=== PATIENT | male | born 1980 | race Caucasian/White ===

== ENCOUNTER 2022-07-23 22:46 | Emergency (ER) | payer OTHER, SELFPAY ==
[2022-07-23 22:59] VITALS: BP 184/89; PULSE 79; RESP 20; TEMP 36.7; O2SAT 99; BMI 27.5
--- NOTE | 2022-07-23 23:11 | ED.NURSE ---
Nose clamp and ice applied to nose, per MD verbal request.
--- NOTE | 2022-07-23 23:28 | ED.EPISTAXIS ---
History of Present Illness General Chief Complaint: Epistaxis/Nosebleed Stated Complaint: bloody nose Time Seen by Provider: 07/23/22 23:02 History of Present Illness HPI Narrative: Pt is a healthy 42 year old gentleman who has had some mild nosebleeds in the past who presents with acute epistaxis from the left nostril that occured tonight after blowing his nose. Pt appears to be up to date on his Tdap and has no chronic medical issues that he is aware of. Pt takes no aspirin or blood thinners. Pt states bleeding began 90 minutes ago and has been brisk. No chest pain sob or cough. Related Data Home Medications Medication Instructions Recorded Confirmed No Known Home Medications 07/23/22 07/23/22 Allergies Allergy/AdvReac Type Severity Reaction Status Date / Time No Known Drug Allergies Allergy Verified 07/23/22 23:02 Review of Systems Status of ROS: Reports: 6 or more systems reviewed and unremarkable except as noted in History and below PFSH [facility] Medical History Elevated LFTs Hypertension Ebony-rectal abscess Social History Smoking Status: Never smoker Do you use any of these nicotine containing products: None Second hand tobacco smoke exposure: No How often do you have a drink containing alcohol: 4 or more times a week AUDIT-C Alcohol total score: 4 Non-prescribed substance use: denies use Exam Narrative: Exam Narrative: EXAM GENERAL: Patient appears comfortable and well. EYES: No scleral icterus. ENT: Bright red blood coming from left nostril moderate. THYROID: no thyroid nodules or thyromegaly. LYMPH: No supraclavicular or cervical lymphadenopathy. SKIN: Visible skin seen during exam normal or with benign process only. EXT: No dependent lower extremity pedal edema. HEART: Regular rate and rhythm with no murmurs, rubs, or gallops. LUNGS: Clear to auscultation bilaterally with no crackles or wheezes. ABD: Soft, non tender, non distended. PSYCH: Good eye contact, speech is not pressured. Const: Vital Signs, click to edit/add: Vital Signs - 24 hr 07/23/22 22:59 Temperature 98.0 F Pulse Rate [Right Pulse Oximeter] 79 Respiratory Rate 20 Blood Pressure [Ri ght Upper Arm] 184/89 H Pulse Oximetry 99 Oxygen Delivery Me thod Room Air Course Course Hospital Course: Nose clamp placed and ice placed on the forehead/nasal bridge. Bleeding stops in short order. Vital Signs Vital signs: Initial Vital Signs Temperature 98.0 F 07/23/22 22:59 Temperature Source Temporal Artery Scan 07/23/22 22:59 Pulse Rate 79 07/23/22 22:59 Respiratory Rate 20 07/23/22 22:59 Blood Pressure 184/89 H 07/23/22 22:59 Blood Pressure Mean 120 07/23/22 22:59 Blood Pressure Position Sitting 07/23/22 22:59 Pulse Oximetry 99 07/23/22 22:59 Oxygen Delivery Method 07/23/22 22:59 Vital Signs Temperature 98.0 F 07/23/22 22:59 Pulse Rate 79 07/23/22 22:59 Respiratory Rate 20 07/23/22 22:59 Blood Pressure 184/89 H 07/23/22 22:59 Pulse Oximetry 99 07/23/22 22:59 Oxygen Delivery Method 07/23/22 22:59 Temperature 98.0 F 07/23/22 22:59 Pulse Rate 79 07/23/22 22:59 Respiratory Rate 20 07/23/22 22:59 Blood Pressure 184/89 H 07/23/22 22:59 Pulse Oximetry 99 07/23/22 22:59 Oxygen Delivery Method 07/23/22 22:59 MDM - Epistaxis Medical Records Medical records narrative: Pt is a 42 year on no antiplatelet or anticoagulant medications who presents with left sided epistaxis. Bleeding stops immediately with ice and direct pressure. Pt encouraged to use nasal saline spray daily and follow up with PCP as needed. Discharge Plan Discharge Clinical Impression: Epistaxis Patient Disposition: Home, Self-Care Condition: Stable Instructions: Nosebleed (ED) Activity Level: No Restrictions Discharge Diet: Regular Prescriptions: No Action No Known Home Medications Follow Up/Referrals: Francisco Mandujano MD [Primary Care Provider] - Stand Alone Forms: [employer] Info Instructions
[2022-07-23 23:56] VITALS: BP 174/86; PULSE 79; RESP 20; TEMP 36.7; O2SAT 99
[2022-07-24 00:02] VITALS: BP 174/86; PULSE 79; RESP 20; TEMP 36.7
== END 2022-07-24 00:03 | disposition home or self-care (01) ==
PROVIDERS: Emergency Provider Internal Medicine; PCP Internal Medicine
DX: R04.0 Epistaxis (principal); I10 Essential (primary) hypertension
CPT/HCPCS: 99282; 99283

== ENCOUNTER 2022-08-02 09:53 | Outpatient (CLI) | payer OTHER, SELFPAY ==
[2022-08-02 12:49] LABS: Albumin* 4.8 g/dL (3.3-5.0)
[2022-08-02 12:50] LABS: Chloride* 105 mmol/L (96-114); Potassium* 4.3 mmol/L (3.6-5.1); Sodium* 143 mmol/L (135-149)
[2022-08-02 12:52] LABS: Bilirubin Total* 0.7 mg/dL (0.1-1.5); Carbon Dioxide* 28 mmol/L (20-32); Cholesterol* 226 mg/dL (90-199); Creatinine* 0.6 mg/dL (0.5-1.5); Estimated Glomerular Filt Rate 125 ml/min
[2022-08-02 12:53] LABS: Alanine Aminotransferase* 225 U/L (4-50); Alkaline Phosphatase* 164 U/L (40-150); Aspartate Amino Transferase* 379 U/L (12-35); Blood Urea Nitrogen* 3 mg/dL (5-24); Calcium* 8.9 mg/dL (8.4-10.6); Glucose* 101 mg/dL (60-115); HDL Cholesterol* 52 mg/dL (>=40); LDL Cholesterol Calculated 135 mg/dL (<100); Total Protein* 8.9 g/dL (6.0-8.3); Triglycerides* 194 mg/dL (40-149)
== END 2022-08-02 09:54 | disposition home or self-care (01) ==
PROVIDERS: PCP Internal Medicine; Visit Provider Family Medicine
DX: Z00.00 Encounter for general adult medical examination without abnormal findings (principal); R03.0 Elevated blood-pressure reading, without diagnosis of hypertension; Z13.6 Encounter for screening for cardiovascular disorders
CPT/HCPCS: 80053; 80061

== ENCOUNTER 2023-02-19 15:11 | Emergency (ER) | payer OTHER, SELFPAY ==
[2023-02-19 15:20] VITALS: BP 152/66; PULSE 97; RESP 18; TEMP 36.7; O2SAT 96; BMI 25.8
--- NOTE | 2023-02-19 15:37 | CRLHL7_ITS ---
For Patients: As a result of the Cures Act, medical imaging exams and procedure reports are released immediately into your electronic medical record. You may view this report before your referring provider. If you have questions, please contact your health care provider. Indication: Shortness of breath Comparison: None available. Technique: PA and lateral views of the chest Findings: There are increased interstitial markings likely representing mild pulmonary vascular congestion. There is no dense consolidation, effusion or pneumothorax. The cardiac silhouette is mildly prominent. The bony thorax is grossly intact. Impression: Increased interstitial markings likely representing mild pulmonary vascular congestion and/or bronchial thickening. No dense consolidation. Dictated by Cristopher Hart MD @ 02/19/2023 4:27:47 PM (Electronically Signed)
[2023-02-19] MEDS: ONDANSETRON 2 MG/ML inj 4 MG IVP (15:58)
[2023-02-19] MEDS: 0.9 % SODIUM CHLORIDE 1000 ml 1,000 ML IV (15:58)
--- NOTE | 2023-02-19 16:07 | ED.NURSE ---
Pt reports almost daily alcohol use of 5+ drinks at a time. He typically drinks 16 oz. beers when he drinks. Chart updated to reflect current alcohol use.
[2023-02-19 16:08] LABS: Lactate* 2.1 mmol/L (0.5-1.9)
[2023-02-19 16:19] LABS: Basophils Absolute Auto 0.02 K/uL (0.00-0.30); Basophils Percent Auto 0.4 % (0.0-3.0); Eosinophils Absolute Auto 0.01 K/uL (0.00-0.50); Eosinophils Percent Auto 0.2 % (0.0-7.0); Hemoglobin* 14.5 gm/dL (13.5-17.5); Immature Granulocytes Abs Auto 0.01 K/uL (0.00-0.30); Immature Granulocytes Pct Auto 0.2 %; Lymphocytes Absolute Auto 0.98 K/uL (0.90-2.90); Lymphocytes Percent Auto 20.8 % (20-44); Mean Corpuscular HGB Conc 35 gm/dL (32-36); Mean Corpuscular Hemoglobin 31 pg (26-34); Mean Corpuscular Volume 88 fL (80-100); Monocytes Percent Auto 6.2 % (0.0-11.0); Neutrophils Percent Auto 72.2 % (42.0-72.0); Platelet Count* 97 K/uL (140-440); RDW Coefficient of Variation % 14.2 % (11.5-15.5); Red Blood Count 4.75 m/uL (4.30-5.90); White Blood Count* 4.71 K/uL (4.50-11.00)
[2023-02-19 16:20] LABS: Slide Review Reflex No
[2023-02-19 16:32] LABS: Albumin* 4.9 g/dL (3.3-5.0); Chloride* 97 mmol/L (96-114); Sodium* 133 mmol/L (135-149)
[2023-02-19 16:33] LABS: Potassium* 3.7 mmol/L (3.6-5.1)
[2023-02-19 16:35] LABS: Creatinine* 0.5 mg/dL (0.5-1.5); Est. Creatinine Clearance* 177.22; Estimated Glomerular Filt Rate 132 ml/min
[2023-02-19 16:36] LABS: Alanine Aminotransferase* 56 U/L (4-50); Alkaline Phosphatase* 130 U/L (40-150); Aspartate Amino Transferase* 129 U/L (12-35); Bilirubin Direct* 0.4 mg/dL (0.0-0.5); Bilirubin Total* 1.5 mg/dL (0.1-1.5); Calcium* 9.1 mg/dL (8.4-10.6); Carbon Dioxide* 24 mmol/L (20-32); Glucose* 114 mg/dL (60-115); Lipase* 60 U/L (23-300); Total Protein* 9.8 g/dL (6.0-8.3)
[2023-02-19 16:37] LABS: Ethanol* 0.01 % (0.01-0.03)
[2023-02-19 16:39] LABS: C Reactive Protein* 0.5 mg/dL (0.5-1.0)
[2023-02-19 16:41] LABS: Blood Urea Nitrogen* < 2 mg/dL (5-24)
[2023-02-19 18:02] LABS: Appearance Urine Clear (Clear); Bilirubin Urine Negative (Negative); Blood Urine Negative (Negative); Color Urine Yellow (Yellow); Glucose Urine Negative (Negative); Ketones Urine Negative (Negative); Leukocyte Esterase Urine Negative (Negative); Nitrite Urine Negative (Negative); Protein Urine Negative (Negative); Urobilinogen Urine 0.2 (0.2-1.0); pH Urine 7.5 (5.0-8.5)
[2023-02-19 18:24] LABS: RBC Urine 0-2 (0-2); WBC Urine 0-2 (0-5)
--- NOTE | 2023-02-19 19:01 | ED_ITS ---
HPI - General Adult General Date Seen: 02/19/23 Chief complaint: Nausea/Vomiting Stated complaint: havent been able to eat last 3 days Time Seen by Provider: 02/19/23 15:23 Source: patient Mode of arrival: ambulatory Limitations: no limitations History of Present Illness HPI narrative: Patient is a 42-year-old male who presents for evaluation of vomiting and diarrhea. He says he had diarrhea Saturday and Saturday, has had vomiting for the past few days. The diarrhea has largely resolved although at the time he did note a little blood in his stools. No black stools. He has not had any abdominal pain at all. He does note that he feels a little short of breath, he thinks related to his nausea. He tells me that he drinks daily, acknowledges that he is drinking more than he should, and says that he has talked to his about cessation of alcohol. He stopped drinking a couple of days ago secondary to vomiting. he denies other symptoms of withdrawal. He has not had fevers or chills. Denies urinary symptoms. No ill contacts. Related Data Home Medications Medication Instructions Recorded Confirmed No Known Home Medications 07/23/22 11/07/22 Allergies Allergy/AdvReac Type Severity Reaction Status Date / Time No Known Drug Allergies Allergy Verified 11/07/22 16:36 Review of Systems Status of ROS: Reports: 10 or more systems reviewed and unremarkable except as noted in History and below [facility] Medical History Left wrist fracture ?S62.102A - Fracture of unspecified carpal bone, left wrist, initial encounter for closed fracture (ICD-10) Elevated LFTs ?R79.89 - Other specified abnormal findings of blood chemistry (ICD-10) Ebony-rectal abscess ?K61.1 - Rectal abscess (ICD-10) Surgical History Hx of appendectomy ?Z90.49 - Acquired absence of other specified parts of digestive tract (ICD- 10) Family History Mother High blood pressure Diabetes Father Diabetes Family/Other Diabetes 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 In general, an alert, well-appearing patient. Head: Normocephalic, atraumatic. Eyes: Pupils are equal reactive. Extraocular movements are full. Conjunctivae are normal. ENT: Mucous membranes are moist. Throat is normal. Neck: Supple without lymphadenopathy. Heart: Regular rate and rhythm. No murmur or rub. Lungs: Clear bilaterally. No increased work of breathing, crackles or wheezes. Abdomen: Soft and nontender. No organomegaly. Extremities: Well perfused. No edema. No calf tenderness. Pulses intact. Neurologic: Patient is alert and oriented to person and place. Speech is fluent. Face is symmetric. Moves all extremities equally. Affect: Normal. Skin: Warm and dry. Well perfused. Const: Vital Signs, click to edit/add: Vital Signs - 24 hr 02/19/23 15:20 Temperature 98.1 F Pulse Rate [Right Pulse Oximeter] 97 Respiratory Rate 18 Blood Pressure [Ri ght Upper Arm] 152/66 H Pulse Oximetry 96 Oxygen Delivery Me thod Room Air Documenting provider has reviewed patient's vital signs: yes Course Course Hospital Course: We placed an IV here, he had a L of normal saline as well as Zofran. Has not had further vomiting while here. Labs including a CBC, metabolic panel, LFTs, lactate and CRP were obtained. Notably his LFT show mild elevations of his transaminases which he has been told he says in the past. His AST is 129, ALT 56. This may be related to alcoholic hepatitis. His lactate was mildly elevated at 2.1. Urinalysis was negative, no red cells, no white cells, no ketones. Blood alcohol was negative as well. Lipase was normal at 60. CBC showed a white count of 4.7 and hemoglobin of 14.5, platelets were low at 97,000 seven thousand, again likely related to alcohol. Metabolic panel was notable for a BUN add that was low at less than 2. Sodium was 133, potassium 3.7. Blood sugar was 114. He feels improved after fluids. He was able to have some water crackers. Symptoms may be viral, I am less suspicious of withdrawal since the symptoms started before he stop drinking. Transaminases are mildly abnormal but I doubt this represents acute symptomatic hepatitis. no evidence of pancreatitis base d on normal lipase, absence of abdominal pain or tenderness. I agree with his decision to stop drinking. Recommend use of Zofran, hydration over the next couple of days. If not improving he should be seen again. Zofran if needed for nausea at home. Recommend clear liquids today, advance as able. Return at any time for abdominal pain, fevers, bloody or black stools, vomiting blood. Vital Signs Vital signs: Initial Vital Signs Temperature 98.1 F 02/19/23 15:20 Temperature Source Temporal Artery Scan 02/19/23 15:20 Pulse Rate 97 02/19/23 15:20 Respiratory Rate 18 02/19/23 15:20 Blood Pressure 152/66 H 02/19/23 15:20 Blood Pressure Mean 94 02/19/23 15:20 Blood Pressure Position Sitting 02/19/23 15:20 Pulse Oximetry 96 02/19/23 15:20 Oxygen Delivery Method Room Air 02/19/23 15:20 Vital Signs Temperature 98.1 F 02/19/23 15:20 Pulse Rate 97 02/19/23 15:20 Respiratory Rate 18 02/19/23 15:20 Blood Pressure 152/66 H 02/19/23 15:20 Pulse Oximetry 96 02/19/23 15:20 Oxygen Delivery Method Room Air 02/19/23 15:20 Temperature 98.1 F 02/19/23 15:20 Pulse Rate 97 02/19/23 15:20 Respiratory Rate 18 02/19/23 15:20 Blood Pressure 152/66 H 02/19/23 15:20 Pulse Oximetry 96 02/19/23 15:20 Oxygen Delivery Method Room Air 02/19/23 15:20 Medical Decision Making Lab Data Labs: Lab Results 02/19/23 02/19/23 Range/Units 15:56 17:37 WBC 4.71 (4.50-11.00) K/uL RBC 4.75 (4.30-5.90) m/uL Hgb 14.5 (13.5-17.5) gm/dL Hct 42.0 (37.0-53.0) % MCV 88 (80-100) fL MCH 31 (26-34) pg MCHC 35 (32-36) gm/dL RDW Coeff of Karen 14.2 (11.5-15.5) % Plt Count 97 L (140-440) K/uL Neut % (Auto) 72.2 H (42.0-72.0) % Lymph % (Auto) 20.8 (20-44) % Catron % (Auto) 6.2 (0.0-11.0) % Eos % (Auto) 0.2 (0.0-7.0) % Baso % (Auto) 0.4 (0.0-3.0) % Neut # (Auto) 3.40 (1.7-7.0) K/uL Lymph # (Auto) 0.98 (0.90-2.90) K/uL Catron # (Auto) 0.30 (0.00-0.90) K/UL Eos # (Auto) 0.01 (0.00-0.50) K/uL Baso # (Auto) 0.02 (0.00-0.30) K/uL Sodium 133 L (135-149) mmol/L Potassium 3.7 (3.6-5.1) mmol/L Chloride 97 (96-114) mmol/L Carbon Dioxide 24 (20-32) mmol/L BUN < 2 L (5-24) mg/dL Creatinine 0.5 (0.5-1.5) mg/dL Estimated Creat Clear 177.22 Estimated GFR 132 ml/min Glucose 114 (60-115) mg/dL Lactate 2.1 H (0.5-1.9) mmol/L Calcium 9.1 (8.4-10.6) mg/dL Total Bilirubin 1.5 (0.1-1.5) mg/dL Direct Bilirubin 0.4 (0.0-0.5) mg/dL AST 129 H (12-35) U/L ALT 56 H (4-50) U/L Alkaline Phosphatase 130 (40-150) U/L C-Reactive Protein 0.5 (0.5-1.0) mg/dL Total Protein 9.8 H (6.0-8.3) g/dL Albumin 4.9 (3.3-5.0) g/dL Lipase 60 (23-300) U/L Urine Color Yellow (Yellow) Urine Appearance Clear (Clear) Urine pH 7.5 (5.0-8.5) Ur Specific [place] 1.010 (1.000-1.030) Urine Protein Negative (Negative) Urine Glucose (UA) Negative (Negative) Urine Ketones Negative (Negative) Urine Blood Negative (Negative) Urine Nitrite Negative (Negative) Urine Bilirubin Negative (Negative) Urine Urobilinogen 0.2 (0.2-1.0) Ur Leukocyte Esterase Negative (Negative) Urine RBC 0-2 (0-2) Urine WBC 0-2 (0-5) Ur Squamous Epith Cells None (None-Few) Urine Bacteria None (None) Ethyl Alcohol 0.01 (0.01-0.03) % Discharge Plan Discharge Clinical Impression: Alcohol abuse, Vomiting Patient Disposition: Home, Self-Care Condition: Improved Instructions: Acute Nausea and Vomiting (DC) Additional Instructions: clear liquids today, advance diet as able. Agree with your decision to quit drinking Alcohol. Consider AA if you need additional resources. If you have persistent uncontrolled vomiting, develops significant abdominal pain, or vomiting blood or having matthew bloody stools, return to the emergency department. Otherwise, clinic follow-up next week for recheck. Zofran if needed for nausea at home. Prescriptions: No Action No Known Home Medications Follow Up/Referrals: Francisco Mandujano MD [Primary Care Provider] - Stand Alone Forms: [employer] Info Instructions
== END 2023-02-19 18:20 | disposition home or self-care (01) ==
PROVIDERS: Emergency Provider Emergency Medicine; PCP Internal Medicine
DX: F10.10 Alcohol abuse, uncomplicated (principal); R11.10 Vomiting, unspecified
CPT/HCPCS: 36415; 71046; 80048; 80076; 81001; 82077; 83605; 83690; 85025; 86140; 93005; 96361; 96374; 99284; 99285; J2405; J7030

== ENCOUNTER 2024-07-02 14:24 | Outpatient (CLI) | payer OTHER, SELFPAY | END 2024-07-02 14:25 | disposition home or self-care (01) | PROVIDERS: PCP Internal Medicine; Visit Provider Internal Medicine | DX: R63.4 Abnormal weight loss (principal); R82.90 Unspecified abnormal findings in urine | CPT/HCPCS: 80053; 84443; 85610; 85730; 87086 ==

== ENCOUNTER 2024-08-30 09:47 | Emergency (ER) | payer OTHER, SELFPAY ==
[2024-08-30] VITALS (22 sets, daily range): BP systolic 146–167; BP diastolic 87–96; PULSE 95–117; RESP 14–22; TEMP 37.5; O2SAT 92–97; BMI 28.3
--- OUTSIDE RECORDS SUMMARY | 2024-08-30 09:49 | XMS_ITS | Clinical Summary ---
Author Organization [employer] [facility] Address [place], [place] [address] Care Team Providers Care Beam Department Supervisor Name Role Phone Pcp, No Primary Care Provider Unavailabl e Allergies No known active allergies Medications No known medications Active Problems Problem Noted Date Diagnosed Date Anxiety state, unspecified 12/09/2009 Immunizations Name Administration Dates Next Due Influenza, IIV4 07/16/2017 Tdap 02/01/2012 Family History Medical History Relation Name Comments Diabetes Father 2017 age 7 3, heart attack Diabetes Maternal Aunt Diabetes Maternal Uncle 3 uncles Diabetes Mother age 65, he art attack Relation Name Status Comments Father Maternal Aunt Maternal Uncle Mother Social History Tobacco Use Types Packs/Day Years Used Date Smoking Tobacco: Never Smokeless Tobacco: Never Tobacco Cessation:Counseling Given: Yes Alcohol Use Standard Drinks/Week Comments Yes 5 (1 standard drink = 0.6 oz pure alcohol) 3 beers per day, more on weekends. 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 Not on file Not on file Not on file Obstetrics History Last Filed Vital Signs Vital Sign Reading Time Taken Comments Blood Pressure 128/81 07/16/2017 9:22 AM CONTENT WRITER Pulse 72 07/16/2017 9:22 AM CONTENT WRITER Temperature 36.8 C (98.2 F) 07/16/2017 9:22 AM CONTENT WRITER Respiratory Rate - - Oxygen Saturation 94% 07/16/2017 9:22 AM CONTENT WRITER Inhaled Oxygen Concentration - - Weight 81.8 kg (180 lb 6.4 oz) 07/16/2017 9:22 A M CONTENT WRITER Height 161.3 cm (5' 3.5) 07/16/2017 9:22 AM CONTENT WRITER Body Mass Index 31.46 07/16/2017 9:22 AM CONTENT WRITER Plan of Treatment Health Maintenance Due Date Last Done Comments HIV for age 15-65 1997 Hepatitis C screening for ag e 18-79 2000 BMI (ht and wt on same day) for age 18+ 07/16/2018 07/16/2017 Depression screening for age 12+ 07/16/2018 07/16/2017 Tetanus booster 01/31/2022 02/01/2012, 02/01/2012 Lipids for age 35-44 07/16/2022 07/16/2017, 02/01/2012 COVID-19 vaccine series ( season) 2024 Influenza for age 9-49 04/26/2024 07/16/2017 Tdap Completed 02/01/2012 Pneumococcal series for age 6-49 Aged Out No longer eligible b ased on patient's age to complete this topic Procedures Procedure Name Priority Date/Time Associated Diagnosis Comments LIPID PANEL W REFLEX MEASURED LDL Routine 07/16/2017 10:47 AM CONTENT WRITER Routine physical examination from Last 3 Months or Most Recently Relevant to Health Maintenance Results * (ABNORMAL) LIPID PANEL W REFLEX MEASURED LDL (07/16/2017 10:47 AM CONTENT WRITER) CHOLESTEROL,TOTAL 228(H) 100 - 199 mg/dL 07/16/2017 5:58 PM CONTENT WRITER [facility] TRIGLYCERIDES 142 <150 mg/dL 07/16/2017 5:58 PM CONTENT WRITER [facility] HDL CHOLESTEROL 53 >40 mg/dL 7 5:58 PM CONTENT WRITER [facility] NON-HDL CHOLESTEROL 175(H) <145 mg/dl 07/16/2017 5:58 PM CONTENT WRITER [facility] CHOL/HDL RATIO 4.30 <4.50 07/16/2017 5:58 PM CONTENT WRITER [facility] LDL CHOLESTEROL 147(H) <=130 mg/dL 07/16/2017 5:58 PM CONTENT WRITER [facility] PROVIDER ORDERED STATUS RANDOM 07/16/2017 5:58 PM CONTENT WRITER [facility] Blood BLOOD SPECIMEN / Unknown Venipuncture / Unknown 07/16/2017 10:47 AM CONTENT WRITER 07/16/2017 10:47 AM CONTENT WRITER us Emory Shafer MD CHEMISTRY Final Re sult [facility] [address] [place] [address], from Last 3 Months or Most Recently Relevant to Health Maintenance Insurance [employer] [id number] Care Teams Beam Department Supervisor Relationship Specialty Start Date End Date Pcp, No . PCP - General 01/16/21
--- NOTE | 2024-08-30 11:15 | CRLHL7_ITS ---
For Patients: As a result of the Century Cures Act, medical imaging exams and procedure reports are released immediately into your electronic medical record. You may view this report before your referring provider. If you have questions, please contact your health care provider. INDICATION: Chest pain. TECHNIQUE: Chest 2 views. COMPARISON: February 19, 2023. FINDINGS: Cardiovascular and mediastinum: Heart size and vasculature are normal in caliber and appearance. Lungs and pleural spaces: Low lung volumes with persistent increased interstitial markings. No sign of infiltrate or mass. No sign of pleural effusion. No pneumothorax. Bones and soft tissues: No significant findings. IMPRESSION: Low lung volumes with persistent increased interstitial markings. No change. Dictated by Jaime Mcintyre MD @ 08/30/2024 11:54:43 AM (Electronically Signed)
--- NOTE | 2024-08-30 11:19 | ED_ITS ---
HPI - Chest Pain General Date Seen: 08/30/24 Chief Complaint: Chest Pain Stated Complaint: Bleeding gums Time Seen by Provider: 08/30/24 10:58 Source: patient Mode of arrival: ambulatory Limitations: no limitations History of Present Illness HPI narrative: Patient is a 44-year-old male presenting to the emergency department for chest pain, bleeding gums, epistaxis. Patient states for the past few days he has been having bleeding gums and intermittent epistaxis. States he has had this before a couple months ago when he saw his primary care provider. Was supposed to follow-up again after that but never did. At that time he platelets of 30. He does drink 7-8 beers every night for the past several years. States his last drink the was 5 days ago. States she has started to feel tremulous yesterday when he began having viral symptoms. States that better rhinorrhea and a mild cough. Has not had any fevers or chills. Also woke up this morning with some chest pain and mild shortness of breath. States he has had this chest pain several times before and seems to be random in nature. Usually goes away after couple days. Does not notice of anything makes it better or worse. Has no history of blood clots. Does state he has been having some nausea and when he turned very nauseated he feels slightly lightheaded. Does not feel lightheaded or dizzy right now. Denies headache, vision changes, weakness, numbness, abdominal pain, diarrhea, constipation. No other concerns noted. Related Data Home Medications ?Medication ?Instructions ?Recorded ?Confirmed No Known Home Medications 08/30/24 08/30/24 Allergies Allergy/AdvReac Type Severity Reaction Status Date / Time No Known Drug Allergies Allergy Verified 08/30/24 12:39 Review of Systems Status of ROS Reports: 10 or more systems reviewed and unremarkable except as noted in History and below [facility] Medical History Thrombocytopenia ?D69.6 - Thrombocytopenia, unspecified (ICD-10) Weight loss ?R63.4 - Abnormal weight loss (ICD-10) Left wrist fracture ?S62.102A - Fracture of unspecified carpal bone, left wrist, initial encounter for closed fracture (ICD-10) Elevated LFTs ?R79.89 - Other specified abnormal findings of blood chemistry (ICD-10) Ebony-rectal abscess ?K61.1 - Rectal abscess (ICD-10) Surgical History Hx of appendectomy ?Z90.49 - Acquired absence of other specified parts of digestive tract (ICD- 10) Family History Mother High blood pressure Diabetes Father Diabetes Family/Other Diabetes 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 Moist mucous membranes. Coagulated blood seen by tooth 6 and 7 with gingivitis noted underneath. Bleeding did not return when blood was wiped away. No signs of active bleeding from nose. Neck: Symmetric, trachea midline, No thyromegaly. CVS: RRR, No murmurs or gallops. Peripheral pulses 2+ and equal in all extremities RESP: Unlabored respiratory effort. Clear to auscultation bilaterally. GI: Nontender/Nondistended, No rebound or guarding. MSK:Extremities w/o deformity, Normal Active ROM Skin: Warm, Dry. No rashes or lesions. Neuro: Normal Muscle tone, No focal neurological deficits. Psych: Awake, Alert, & Oriented x3. Appropriate mood and affect. Const Vital Signs, click to edit/add: Vital Signs - 24 hr 08/30/24 10:56 08/30/24 11:59 08/30/24 12:00 Temperature 99.5 F Pulse Rate 99 102 H Pulse Rate [Pulse Oximeter] 107 H Respiratory Rate 22 Blood Pressure 146/87 H Blood Pressure [Right Upper Arm] 167/89 H Pulse Oximetry 95 95 95 Oxygen Delivery Method Room Air 08/30/24 12:15 08/30/24 12:30 08/30/24 12:48 Temperature Pulse Rate 100 95 111 H Pulse Rate [Pulse Oximeter] Respiratory Rate Blood Pressure Blood Pressure [Right Upper Arm] Pulse Oximetry 96 94 97 Oxygen Delivery Method 08/30/24 13:00 08/30/24 13:15 08/30/24 13:30 Temperature Pulse Rate 104 H 108 H 100 Pulse Rate [Pulse Oximeter] Respiratory Rate Blood Pressure Blood Pressure [Right Upper Arm] Pulse Oximetry 94 94 92 Oxygen Delivery Method 08/30/24 13:45 08/30/24 14:00 08/30/24 14:15 Temperature Pulse Rate 109 H 108 H 110 H Pulse Rate [Pulse Oximeter] Respiratory Rate Blood Pressure Blood Pressure [Right Upper Arm] Pulse Oximetry 95 95 96 Oxygen Delivery Method 08/30/24 14:30 08/30/24 14:45 08/30/24 15:06 Temperature Pulse Rate 104 H 104 H 117 H Pulse Rate [Pulse Oximeter] Respiratory Rate Blood Pressure Blood Pressure [Right Upper Arm] Pulse Oximetry 95 96 94 Oxygen Delivery Method 08/30/24 15:15 08/30/24 15:24 08/30/24 15:30 Temperature Pulse Rate 103 H 106 H 106 H Pulse Rate [Pulse Oximeter] Respiratory Rate 14 Blood Pressure 147/96 H Blood Pressure [Right Upper Arm] Pulse Oximetry 96 94 95 Oxygen Delivery Method 08/30/24 15:45 08/30/24 16:00 08/30/24 16:15 Temperature Pulse Rate 113 H 98 98 Pulse Rate [Pulse Oximeter] Respiratory Rate Blood Pressure Blood Pressure [Right Upper Arm] Pulse Oximetry 95 94 92 Oxygen Delivery Method 08/30/24 16:30 Temperature Pulse Rate 98 Pulse Rate [Pulse Oximeter] Respiratory Rate 16 Blood Pressure Blood Pressure [Right Upper Arm] Pulse Oximetry 95 Oxygen Delivery Method Course Vital Signs Vital signs: Initial Vital Signs Temperature 99.5 F 08/30/24 10:56 Temperature Source Temporal Artery Scan 08/30/24 10:56 Pulse Rate 107 H 08/30/24 10:56 Respiratory Rate 22 08/30/24 10:56 Blood Pressure 167/89 H 08/30/24 10:56 Blood Pressure Mean 115 H 08/30/24 10:56 Blood Pressure Position Sitting 08/30/24 10:56 Pulse Oximetry 95 08/30/24 10:56 Oxygen Delivery Method Room Air 08/30/24 10:56 Vital Signs Temperature 99.5 F 08/30/24 10:56 Pulse Rate 107 H 08/30/24 10:56 Respiratory Rate 22 08/30/24 10:56 Blood Pressure 167/89 H 08/30/24 10:56 Pulse Oximetry 95 08/30/24 10:56 Oxygen Delivery Method Room Air 08/30/24 10:56 Temperature 99.5 F 08/30/24 10:56 Pulse Rate 98 08/30/24 16:30 Respiratory Rate 16 08/30/24 16:30 Blood Pressure 147/96 H 08/30/24 15:24 Pulse Oximetry 95 08/30/24 16:30 Oxygen Delivery Method Room Air 08/30/24 10:56 MDM - Chest Pain MDM Narrative Medical decision making narrative: Patient is a 44-year-old male presenting to the emergency department for bleeding gums, epistaxis, chest pain. He is also having flu-like symptoms. Will check a COVID/flu/RSV. The differential diagnosis of chest pain is broad and includes common etiologies such as musculoskeletal strain, GERD, pneumonia, etc. More serious etiologies considered include PE, coronary artery disease, pneumothorax, aortic dissection, aortic aneurysm. He does have a history of thrombocytopenia but I will order a D-dimer for possible signs of blood clot causing his chest pain and shortness of breath. Will also order chest x-ray to look for signs pneumonia or pneumothorax. EKG and troponin to look for signs of ACS or myocarditis. He is otherwise stable so aortic dissection and aortic aneurysm seen on likely although there would be concern about increased bleeding risk with his history of thrombocytopenia. Also ordered coags. He is tremulous at this time which would increase my concern for alcohol withdrawal but he is adamant he has not had a drink for over 5 days and this will be quite delayed response. He states symptoms started right after he started having flu-like symptoms. Lab work returns with a platelet count of 26. This is roughly the same as previously. Rest of his CBC shows no concerning findings. CMP shows elevated liver enzymes consistent with his previous levels other than his total bilirubin which is almost twice is high. Will order direct bilirubin. He does have an elevated D-dimer so CTA was ordered. His INR and PTT are slightly elevated. Fibrinogen ordered. There is concern for liver cirrhosis with his history so will order an ultrasound for better evaluation. EKG shows sinus tachycardia but no other concerning findings. Troponin within normal limits. Will repeat troponin after 2 hours. Viral swabs are negative. Repeat troponin within normal limits. The CTA does show a mediastinal mass. Does recommend GI consult and endoscopy. I did speak to his primary care provider he states he can get the patient scheduled with him this week and get an endoscopy performed. Along with getting him scheduled for any other imaging that is needed. Ultrasounds shows a cirrhotic liver with reverse flow of the portal vein and splenomegaly. He also has a distended gallbladder that does not appear to be cholecystitis. There is a mass in the pancreatic head and it is recommend he get a CT scan of his abdomen pelvis. There is concerned this could be pancreatic cancer. He does have elevated direct bilirubin but his other LFTs are doing well. He is otherwise feeling well at this time. I believe this CT scan can be done outpa tient. I informed of all his results. He is agreeable to this plan. Lab Data Labs: Lab Results 08/30/24 08/30/24 08/30/24 Range/Units 11:15 11:50 11:50 WBC 3.01 L (4.50-11.00) K/uL RBC 3.98 L (4.30-5.90) m/uL Hgb 13.0 L (13.5-17.5) gm/dL Hct 38.2 (37.0-53.0) % MCV 96 (80-100) fL MCH 33 (26-34) pg MCHC 34 (32-36) gm/dL RDW Coeff of Karen 14.9 (11.5-15.5) % Plt Count 26 L* (140-440) K/uL Neut % (Auto) 70.5 (42.0-72.0) % Lymph % (Auto) 18.6 L (20-44) % [place] % (Auto) 9.3 (0.0-11.0) % Eos % (Auto) 0.3 (0.0-7.0) % Baso % (Auto) 1.0 (0.0-3.0) % Neut # (Auto) 2.10 (1.7-7.0) K/uL Lymph # (Auto) 0.60 L (0.90-2.90) K/uL [place] # (Auto) 0.30 (0.00-0.90) K/UL Eos # (Auto) 0.00 (0.00-0.50) K/uL Baso # (Auto) 0.00 (0.00-0.30) K/uL Abs Immat Gran (auto) 0.00 (0.00-0.30) K/uL Imm/Tot Granulo (auto) 0.3 % Diff Slide Review Acceptable Review (Acceptable) INR 1.33 H (0.91-1.10) APTT 41 H (23-33) Seconds Fibrinogen 298 (200-450) mg/dL D-Dimer Quant (PE/DVT) 1.48 H Cancelled (0.00-0.50) ug/ml Sodium 134 L (135-149) mmol/L Potassium 3.8 (3.6-5.1) mmol/L Chloride 104 (96-114) mmol/L Carbon Dioxide 23 (20-32) mmol/L Anion Gap 7 (7-15) mEq/L BUN 3 L (5-24) mg/dL Creatinine 0.4 L (0.5-1.5) mg/dL Estimated Creat Clear 209.27 Estimated GFR 140 ml/min Glucose 122 H (60-115) mg/dL Lactate 1.3 (0.5-1.9) mmol/L Calcium 8.2 L (8.4-10.6) mg/dL Total Bilirubin 4.9 H (0.1-1.5) mg/dL Direct Bilirubin 2.9 H (0.0-0.5) mg/dL AST 227 H (12-35) U/L ALT 42 (4-50) U/L Alkaline Phosphatase 298 H (40-150) U/L Total Protein 9.5 H (6.0-8.3) g/dL Albumin 3.8 (3.3-5.0) g/dL SARS-CoV-2 (PCR) (Negative) Influenza Type A (PCR) (Negative) Influenza Type B (PCR) (Negative) RSV (PCR) (Negative) Lab Acknowledgement POC Troponin I 0.00 L (0.01-0.04) ng/ml 08/30/24 08/30/24 08/30/24 Range/Units 11:52 12:38 13:14 WBC (4.50-11.00) K/uL RBC (4.30-5.90) m/uL Hgb (13.5-17.5) gm/dL Hct (37.0-53.0) % MCV (80-100) fL MCH (26-34) pg MCHC (32-36) gm/dL RDW Coeff of Karen (11.5-15.5) % Plt Count (140-440) K/uL Neut % (Auto) (42.0-72.0) % Lymph % (Auto) (20-44) % [place] % (Auto) (0.0-11.0) % Eos % (Auto) (0.0-7.0) % Baso % (Auto) (0.0-3.0) % Neut # (Auto) (1.7-7.0) K/uL Lymph # (Auto) (0.90-2.90) K/uL [place] # (Auto) (0.00-0.90) K/UL Eos # (Auto) (0.00-0.50) K/uL Baso # (Auto) (0.00-0.30) K/uL Abs Immat Gran (auto) (0.00-0.30) K/uL Imm/Tot Granulo (auto) % Diff Slide Review (Acceptable) INR (0.91-1.10) APTT (23-33) Seconds Fibrinogen (200-450) mg/dL D-Dimer Quant (PE/DVT) (0.00-0.50) ug/ml Sodium (135-149) mmol/L Potassium (3.6-5.1) mmol/L Chloride (96-114) mmol/L Carbon Dioxide (20-32) mmol/L Anion Gap (7-15) mEq/L BUN (5-24) mg/dL Creatinine (0.5-1.5) mg/dL Estimated Creat Clear Estimated GFR ml/min Glucose (60-115) mg/dL Lactate (0.5-1.9) mmol/L Calcium (8.4-10.6) mg/dL Total Bilirubin (0.1-1.5) mg/dL Direct Bilirubin (0.0-0.5) mg/dL AST (12-35) U/L ALT (4-50) U/L Alkaline Phosphatase (40-150) U/L Total Protein (6.0-8.3) g/dL Albumin (3.3-5.0) g/dL SARS-CoV-2 (PCR) Negative SARS-CoV-2 (Negative) Influenza Type A (PCR) Negative PCR FLU A (Negative) Influenza Type B (PCR) Negative PCR FLU B (Negative) RSV (PCR) Negative PCR RSV (Negative) Lab Acknowledgement Test Added Test Added POC Troponin I (0.01-0.04) ng/ml 08/30/24 Range/Units 13:44 WBC (4.50-11.00) K/uL RBC (4.30-5.90) m/uL Hgb (13.5-17.5) gm/dL Hct (37.0-53.0) % MCV (80-100) fL MCH (26-34) pg MCHC (32-36) gm/dL RDW Coeff of Karen (11.5-15.5) % Plt Count (140-440) K/uL Neut % (Auto) (42.0-72.0) % Lymph % (Auto) (20-44) % [place] % (Auto) (0.0-11.0) % Eos % (Auto) (0.0-7.0) % Baso % (Auto) (0.0-3.0) % Neut # (Auto) (1.7-7.0) K/uL Lymph # (Auto) (0.90-2.90) K/uL [place] # (Auto) (0.00-0.90) K/UL Eos # (Auto) (0.00-0.50) K/uL Baso # (Auto) (0.00-0.30) K/uL Abs Immat Gran (auto) (0.00-0.30) K/uL Imm/Tot Granulo (auto) % Diff Slide Review (Acceptable) INR (0.91-1.10) APTT (23-33) Seconds Fibrinogen (200-450) mg/dL D-Dimer Quant (PE/DVT) (0.00-0.50) ug/ml Sodium (135-149) mmol/L Potassium (3.6-5.1) mmol/L Chloride (96-114) mmol/L Carbon Dioxide (20-32) mmol/L Anion Gap (7-15) mEq/L BUN (5-24) mg/dL Creatinine (0.5-1.5) mg/dL Estimated Creat Clear Estimated GFR ml/min Glucose (60-115) mg/dL Lactate (0.5-1.9) mmol/L Calcium (8.4-10.6) mg/dL Total Bilirubin (0.1-1.5) mg/dL Direct Bilirubin (0.0-0.5) mg/dL AST (12-35) U/L ALT (4-50) U/L Alkaline Phosphatase (40-150) U/L Total Protein (6.0-8.3) g/dL Albumin (3.3-5.0) g/dL SARS-CoV-2 (PCR) (Negative) Influenza Type A (PCR) (Negative) Influenza Type B (PCR) (Negative) RSV (PCR) (Negative) Lab Acknowledgement POC Troponin I 0.00 L (0.01-0.04) ng/ml Imaging Data Chest x-ray: Attestation: I have reviewed the pertinent imaging results. Radiologist's impression: Low lung volumes with persistent increased interstitial markings. No change. Dictated by Jaime Mcintyre MD @ 08/30/2024 11:54:43 AM Chest CTA: Attestation: I have reviewed the pertinent imaging results. Radiologist's impression: 1. No pulmonary embolism. No acute pulmonary process. 2. Abnormal posterior mediastinum with thickened dilated patulous esophagus which may be achalasia, versus potentially mass. Endoscopy and/or fluoroscopic contrast esophagram or upper GI recommended for better characterization. GI consult recommended. Please note that all CT scans at this facility use dose modulation, iterative reconstruction, and/or weight-based dosing when appropriate to reduce radiation dose to as low as reasonably achievable. Dictated by Gilmer Tang MD @ 08/30/2024 1:20:01 PM US - abdomen: Attestation: I have reviewed the pertinent imaging results. Radiologist's impression: 1. Cirrhotic morphology liver. Hepatofugal flow in the main portal vein. No focal mass. Splenomegaly 2. Rounded hypoechoic area measured by the technologist near the pancreatic head measuring 2.1 centimeters incompletely assessed by ultrasound could reflect adenopathy. Mass not excluded. CT abdomen pelvis would be recommended. 3. Sludge in the gallbladder nonspecific gallbladder wall thickening measuring 5 millimeters. Dictated by Beryl Mendoza MD @ 08/30/2024 4:22:54 PM ECG Data Attestation: I personally reviewed and interpreted this ECG as follows: Prior ECG tracings: available for review Interpretation: Sinus tachycardia with a rate of 102 beats per minute, right bundle branch block, normal intervals, normal axis, no ST or T-wave abnormalities. The right bundle-branch block is new but otherwise appears similar to previous EKG Discharge Plan Discharge Clinical Impression: Thrombocytopenia, Mediastinal abnormality, Mass of head of pancreas Cirrhosis Qualifiers: Hepatic cirrhosis type: alcoholic cirrhosis Ascites presence: without ascites Qualified Code(s): K70.30 - Alcoholic cirrhosis of liver without ascites Patient Disposition: Home, Self-Care Condition: Stable Instructions: Cirrhosis of the Liver (ED) Additional Instructions: You NEED to call your primary care provider, Dr. Mandujano, tomorrow morning. He is aware you are here and states you will be able to get in with his office this week. It is also important that you do not drink anymore alcohol as that is likely the cause of most of your issues. You have very low platelets that are at high risk of bleeding so be very careful as any hit your head can cause severe acute brain bleeds. Return to emergency department for new or worsening Prescriptions: No Action No Known Home Medications Follow Up/Referrals: Francisco Mandujano MD [Primary Care Provider] - Stand Alone Forms: [employer] Instructions
--- OUTSIDE RECORDS SUMMARY | 2024-08-30 11:43 | XMS_ITS | Clinical Summary ---
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 Not on file Not on file Not on file Obstetrics History Last Filed Vital Signs Vital Sign Reading Time Taken Comments Blood Pressure 128/81 07/16/2017 9:22 AM PLATFORM ATTENDANT Pulse 72 07/16/2017 9:22 AM PLATFORM ATTENDANT Temperature 36.8 C (98.2 F) 07/16/2017 9:22 AM PLATFORM ATTENDANT Respiratory Rate - - Oxygen Saturation 94% 07/16/2017 9:22 AM PLATFORM ATTENDANT Inhaled Oxygen Concentration - - Weight 81.8 kg (180 lb 6.4 oz) 07/16/2017 9:22 A M PLATFORM ATTENDANT Height 161.3 cm (5' 3.5) 07/16/2017 9:22 AM PLATFORM ATTENDANT Body Mass Index 31.46 07/16/2017 9:22 AM PLATFORM ATTENDANT Plan of Treatment Health Maintenance Due Date [...] REFLEX MEASURED LDL Routine 07/16/2017 10:47 AM PLATFORM ATTENDANT Routine physical examination from Last 3 Months or Most Recently Relevant to Health Maintenance Results * (ABNORMAL) LIPID PANEL W REFLEX MEASURED LDL (07/16/2017 10:47 AM PLATFORM ATTENDANT) CHOLESTEROL,TOTAL 228(H) 100 - 199 mg/dL 07/16/2017 5:58 PM PLATFORM ATTENDANT [facility] TRIGLYCERIDES 142 <150 mg/dL 07/16/2017 5:58 PM PLATFORM ATTENDANT [facility] HDL CHOLESTEROL 53 >40 mg/dL 7 5:58 PM PLATFORM ATTENDANT [facility] NON-HDL CHOLESTEROL 175(H) <145 mg/dl 07/16/2017 5:58 PM PLATFORM ATTENDANT [facility] CHOL/HDL RATIO 4.30 <4.50 07/16/2017 5:58 PM PLATFORM ATTENDANT [facility] LDL CHOLESTEROL 147(H) <=130 mg/dL 07/16/2017 5:58 PM PLATFORM ATTENDANT [facility] PROVIDER ORDERED STATUS RANDOM 07/16/2017 5:58 PM PLATFORM ATTENDANT [facility] Blood BLOOD SPECIMEN / Unknown Venipuncture / Unknown 07/16/2017 10:47 AM PLATFORM ATTENDANT 07/16/2017 10:47 AM PLATFORM ATTENDANT us Emory Shafer MD CHEMISTRY Final Re sult [facility] [address] [place] [address], from Last 3 Months or Most Recently Relevant to Health Maintenance Insurance [employer] [id number] Care Teams Nuclear Reactor Engineer Relationship Specialty Start Date End Date Pcp, No . PCP - General 01/16/21
[2024-08-30 11:54] LABS: Lactate Sepsis w/Reflex* 1.3 mmol/L (0.5-1.9)
[2024-08-30 11:58] LABS: Eosinophils Percent Auto 0.3 % (0.0-7.0); Hematocrit 38.2 % (37.0-53.0); Immature Granulocytes Pct Auto 0.3 %; Lymphocytes Percent Auto 18.6 % (20-44); Mean Corpuscular HGB Conc 34 gm/dL (32-36); Mean Corpuscular Hemoglobin 33 pg (26-34); Mean Corpuscular Volume 96 fL (80-100); Monocytes Percent Auto 9.3 % (0.0-11.0); Neutrophils Percent Auto 70.5 % (42.0-72.0); RDW Coefficient of Variation % 14.9 % (11.5-15.5); Red Blood Count 3.98 m/uL (4.30-5.90); White Blood Count* 3.01 K/uL (4.50-11.00)
[2024-08-30 12:07] LABS: Platelet Count* 26 K/uL (140-440)
[2024-08-30 12:08] LABS: Slide Review Acceptable Review (Acceptable); Slide Review Reflex Yes
[2024-08-30 12:15] LABS: Albumin* 3.8 g/dL (3.3-5.0); Chloride* 104 mmol/L (96-114)
[2024-08-30 12:16] LABS: Potassium* 3.8 mmol/L (3.6-5.1); Sodium* 134 mmol/L (135-149)
[2024-08-30 12:18] LABS: Anion Gap 7 mEq/L (7-15); Carbon Dioxide* 23 mmol/L (20-32); Creatinine* 0.4 mg/dL (0.5-1.5); Est. Creatinine Clearance* 209.27; Estimated Glomerular Filt Rate 140 ml/min; INR 1.33 (0.91-1.10); Prothrombin Time 17.3 Seconds
[2024-08-30 12:19] LABS: Alanine Aminotransferase* 42 U/L (4-50); Alkaline Phosphatase* 298 U/L (40-150); Aspartate Amino Transferase* 227 U/L (12-35); Blood Urea Nitrogen* 3 mg/dL (5-24); Glucose* 122 mg/dL (60-115); Partial Thromboplastin Time* 41 Seconds (23-33); Total Protein* 9.5 g/dL (6.0-8.3)
[2024-08-30 12:20] LABS: Calcium* 8.2 mg/dL (8.4-10.6)
[2024-08-30 12:21] LABS: D Dimer Quantitative* 1.48 ug/ml (0.00-0.50)
--- NOTE | 2024-08-30 12:30 | CRLHL7_ITS ---
For Patients: As a result of the Century Cures Act, medical imaging exams and procedure reports are released immediately into your electronic medical record. You may view this report before your referring provider. If you have questions, please contact your health care provider. INDICATION: Chest pain. Shortness of breath. TECHNIQUE: 95 mL Isovue-370 IV contrast. Pulmonary arterial phase imaging. FINDINGS: Adequate bolus timing. No pulmonary embolism filling defects. No right heart strain findings. Caliber of the central pulmonary arteries is normal. Aortic caliber is normal. No pericardial or pleural effusion. Somewhat patulous dilated distal esophagus and surrounding full soft tissue appearance extending to the diaphragmatic hiatus. Small curvilinear focus of soft tissue attenuation along the ventral and left mid descending thoracic aorta may be decompressed patulous esophagus. Soft tissue infiltration not excluded. No air or drainable fluid in the mid mediastinum. Diaphragmatic hiatus does not appear particularly widened and the volume of stomach in the peritoneum looks expected. Some contribution of hiatus hernia may be present. No adenopathy in the mediastinum or arben. The lung parenchyma is clear. Airways are patent. No bone finding of significance. IMPRESSION: 1. No pulmonary embolism. No acute pulmonary process. 2. Abnormal posterior mediastinum with thickened dilated patulous esophagus which may be achalasia, versus potentially mass. Endoscopy and/or fluoroscopic contrast esophagram or upper GI recommended for better characterization. GI consult recommended. Please note that all CT scans at this facility use dose modulation, iterative reconstruction, and/or weight-based dosing when appropriate to reduce radiation dose to as low as reasonably achievable. Dictated by Gilmer Tang MD @ 08/30/2024 1:20:01 PM (Electronically Signed)
[2024-08-30 12:37] LABS: PCR FLU A Negative PCR FLU A (Negative); PCR FLU B Negative PCR FLU B (Negative); PCR RSV Negative PCR RSV (Negative); SARS PCR* Negative SARS-CoV-2 (Negative)
[2024-08-30 13:24] LABS: Fibrinogen* 298 mg/dL (200-450)
--- NOTE | 2024-08-30 13:33 | CRLHL7_ITS ---
For Patients: As a result of the Century Cures Act, medical imaging exams and procedure reports are released immediately into your electronic medical record. You may view this report before your referring provider. If you have questions, please contact your health care provider. CLINICAL HISTORY: Concern for cirrhosis FINDINGS: Cirrhotic morphology liver no focal masses seen. Hepatofugal flow demonstrated in the main portal vein. Aorta and IVC poorly seen. There is no evidence of ascites. Sludge in the gallbladder 5 millimeter gallbladder wall thickening nonspecific. The common bile duct is of normal size and measures 6 mm in diameter at the level of the curtis hepatis. Rounded hypoechoic area near the head of the pancreas measuring 2.1 x 1.8 centimeters incompletely assessed by ultrasound. Pancreas is poorly seen. There is no evidence of a stone or hydronephrosis within the right kidney. The right kidney measures cm in length. Measuring 13.9 cm. Splenomegaly IMPRESSION: 1. Cirrhotic morphology liver. Hepatofugal flow in the main portal vein. No focal mass. Splenomegaly 2. Rounded hypoechoic area measured by the technologist near the pancreatic head measuring 2.1 centimeters incompletely assessed by ultrasound could reflect adenopathy. Mass not excluded. CT abdomen pelvis would be recommended. 3. Sludge in the gallbladder nonspecific gallbladder wall thickening measuring 5 millimeters. Dictated by Beryl Mendoza MD @ 08/30/2024 4:22:54 PM (Electronically Signed)
[2024-08-30 13:43] LABS: Bilirubin Direct* 2.9 mg/dL (0.0-0.5)
[2024-08-30 13:49] LABS: Bilirubin Total* 4.9 mg/dL (0.1-1.5)
[2024-08-30 17:34] LABS: Lipase* 268 U/L (23-300)
== END 2024-08-30 17:29 | disposition home or self-care (01) ==
PROVIDERS: Emergency Provider Student in an Organized Health Care Education/Training Program; PCP Internal Medicine
DX: D69.6 Thrombocytopenia, unspecified (principal); K70.30 Alcoholic cirrhosis of liver without ascites
CPT/HCPCS: 36415; 71046; 71275; 76705; 80053; 82248; 83605; 83690; 84484; 85025; 85379; 85384; 85610; 85730; 87631; 93005; 99285; Q9967

== ENCOUNTER 2024-09-02 12:24 | Outpatient (CLI) | payer OTHER, SELFPAY ==
--- NOTE | 2024-09-02 13:00 | CRLHL7_ITS ---
For Patients: As a result of the Century Cures Act, medical imaging exams and procedure reports are released immediately into your electronic medical record. You may view this report before your referring provider. If you have questions, please contact your health care provider. INDICATION: Possible pancreatic mass seen on ultrasound TECHNIQUE: Volumetric helical scanning of the abdomen and pelvis was performed with 90 cc of Isovue 370 contrast material IV. Coronal and sagittal reconstructions were obtained. COMPARISON: Abdomen ultrasound of 08/30/2024 FINDINGS: The pancreas is within normal limits. No pancreatic mass is evident. No lymphadenopathy is demonstrated. A cirrhotic, fatty liver is demonstrated. No liver neoplasm is apparent. Mild splenomegaly is demonstrated. Large esophageal varices are noted. A splenorenal shunt is also noted. No ascites evident. The bile ducts are within normal limits. The adrenal glands are negative. The kidneys are unremarkable. There is no evidence of bowel obstruction or inflammation. The prostate is mild to moderately enlarged. The lung bases are essentially clear, and heart size is normal. IMPRESSION: 1. No pancreatic mass evident. 2. Cirrhotic liver. No liver neoplasm evident. 3. Portal venous hypertension manifested as mild splenomegaly, large esophageal varices and splenorenal shunt. 4. Mild to moderate prostate enlargement. Please note that all CT scans at this facility use dose modulation, iterative reconstruction, and/or weight-based dosing when appropriate to reduce radiation dose to as low as reasonably achievable. Dictated by Tom Jarvis MD @ 09/03/2024 1:05:23 PM (Electronically Signed)
== END 2024-09-02 12:25 | disposition home or self-care (01) ==
LOC: CT 12:25
PROVIDERS: PCP Internal Medicine; Visit Provider Internal Medicine
DX: K86.89 Other specified diseases of pancreas (principal); K74.60 Unspecified cirrhosis of liver; N40.0 Benign prostatic hyperplasia without lower urinary tract symptoms
CPT/HCPCS: 74177; Q9967

== ENCOUNTER 2024-09-15 10:49 | Outpatient (CLI) | payer OTHER, SELFPAY | END 2024-09-15 10:50 | disposition home or self-care (01) | LOC: NFLDREF 09-16 01:56 | PROVIDERS: PCP Internal Medicine; Referring Provider Internal Medicine; Visit Provider Internal Medicine | DX: K70.30 Alcoholic cirrhosis of liver without ascites (principal) | CPT/HCPCS: 80053 ==

== ENCOUNTER 2024-10-27 10:22 | Outpatient (CLI) | payer OTHER, SELFPAY | END 2024-10-27 10:23 | disposition home or self-care (01) | PROVIDERS: PCP Internal Medicine; Visit Provider Internal Medicine | DX: K70.30 Alcoholic cirrhosis of liver without ascites (principal); D69.6 Thrombocytopenia, unspecified | CPT/HCPCS: 80053; 85610 ==

== ENCOUNTER 2025-05-11 08:32 | Outpatient (CLI) | payer OTHER, SELFPAY | END 2025-05-11 08:33 | disposition home or self-care (01) | PROVIDERS: PCP Internal Medicine; Visit Provider Internal Medicine | DX: K74.60 Unspecified cirrhosis of liver (principal); D69.6 Thrombocytopenia, unspecified; R63.4 Abnormal weight loss | CPT/HCPCS: 80053; 84443 ==

== ENCOUNTER 2025-05-19 08:56 | Outpatient (CLI) | payer OTHER, SELFPAY | END 2025-05-19 08:57 | disposition home or self-care (01) | LOC: RAD 08:57 | PROVIDERS: PCP Internal Medicine; Visit Provider Internal Medicine | DX: R01.1 Cardiac murmur, unspecified (principal); I51.7 Cardiomegaly | CPT/HCPCS: 93306 ==